=== PATIENT | male | born 1945 | race Caucasian/White ===

== ENCOUNTER 2019-01-25 16:39 | Emergency (ER) | payer OTHER ==
[~2019-01-25] VITALS: Ht 188 cm; Wt 81.6 kg
[2019-01-25] MEDS ORDERED: [UNRECOGNIZED DRUG - OTHER] (17:51)
[2019-01-25] MEDS ORDERED: [UNRECOGNIZED DRUG - OTHER] (17:51)
== END 2019-01-25 19:04 | disposition home or self-care (01) ==
LOC: ER 16:39
DX: K59.09 Other constipation (principal); R33.8 Other retention of urine

== ENCOUNTER 2020-08-15 11:55 | Emergency (ER) | payer OTHER ==
[~2020-08-15] VITALS: Ht 193 cm; Wt 83.9 kg
[~2020-08-15 11:55] MED LIST: [UNRECOGNIZED DRUG - OTHER]; [UNRECOGNIZED DRUG - OTHER]
== END 2020-08-15 14:30 | disposition home or self-care (01) ==
LOC: ER 11:55
DX: M62.830 Muscle spasm of back (principal); M54.5 Low back pain; Z87.442 Personal history of urinary calculi